=== PATIENT | female | born 1985 | race Caucasian/White ===

== ENCOUNTER 2016-10-14 08:54 | Outpatient (CLI) | payer OTHER ==
[2015-12-29 05:06] VITALS: BMI 29.5
[~2016-10-14 08:54] MED LIST: CLARITIN 10 MG10 MG PO; FOLIC ACID1 MG PO; HYDROCODON-ACE1 EAC7 PO; IBUPROFEN600 MG PO; IPRAT-ALBUT 0.5-3 ML UPD; NEXIUM40 MG PO; NORCO 10/325 TA1 TA1 PO; ORTHO TRI-7 DAYSX1 PO; PROTONIX40 MG PO
== END 2016-10-14 11:10 ==
LOC: D.MAMMO 08:54
DX: N63 Unspecified lump in breast (principal)

== ENCOUNTER 2017-09-17 03:06 | Emergency (ER) | payer BC ==
[~2017-09-17] VITALS: Ht 157.5 cm; Wt 50.0 kg
[2017-09-17 03:10] VITALS: Ht 157.5 cm; Wt 50.0 kg
[2017-09-17] MEDS ORDERED: BIRTH CONTROL (03:12)
[2017-09-17 03:39] LABS: APPEARANCE CLEAR (CLEAR); BILIRUBIN NEGATIVE (NEGATIVE); COLOR YELLOW (YELLOW); GLUCOSE NEGATIVE (NEGATIVE); KETONE NEGATIVE (NEGATIVE); NITRITE NEGATIVE (NEGATIVE); PROTEIN NEGATIVE (NEGATIVE); UROBILINOGEN NORMAL (NORMAL)
[2017-09-17 03:54] LABS: BASOPHILS 0.1 % (0-2); EOSINOPHILS 3.9 % (0-7); HEMATOCRIT 41.9 % (36.0-48.0); HEMOGLOBIN 14.5 g/dL (12-16); IMMATURE GRANULOCYTES 0.2 % (0-5); LYMPHOCYTES 22.2 % (15-50); MCH 30.8 pg (26.0-34.0); MCHC 34.6 g/dL (31.0-37.0); MEAN PLATELET VOLUME 9.9 fL (7.4-10.4); MONOCYTES 3.7 % (2-11); NEUTROPHILS 69.9 % (40-80); PLATELET COUNT 236 10x3/uL (130-400); RBC 4.71 10x6/uL (4.00-5.40); RDW 12.6 % (11.5-14.5); WBC 8.4 10x3/uL (4.8-10.8)
[2017-09-17 04:06] LABS: ALBUMIN 3.8 g/dL (3.4-5.0); ALKALINE PHOSPHATASE 68 U/L (46-116); ALT (SGPT) 15 U/L (10-68); BILIRUBIN - TOTAL 0.49 mg/dL (0.2-1.3); CALC OSMOLALITY 273 mosm/kg (275-300); CALCIUM 9.1 mg/dL (8.5-10.1); CARBON DIOXIDE 26.9 mmol/L (21.0-32.0); CHLORIDE - SERUM 105 mmol/L (98-107); CREATININE - SERUM 0.6 mg/dL (0.6-1.3); GLUCOSE 106 mg/dL (74-106); POTASSIUM - SERUM 3.5 mmol/L (3.5-5.1); PROTEIN - SERUM 7.5 g/dL (6.4-8.2); SODIUM 138 mmol/L (136-145); UREA NITROGEN 6 mg/dL (7-18); eGFR NON AFRICAN AMERICAN > 90 mL/min (90-120)
[2017-09-17 04:12] LABS: HCG - QUANTITATIVE (MATERNAL) 0 mIU/mL; LIPASE 152 U/L (73-393)
[2017-09-17] MEDS ORDERED: OMEPRAZOLE20 M1 PO (06:47)
[2017-09-17] MEDS ORDERED: ULTRAM50 MG PO (06:47)
[2017-09-17 07:07] VITALS: BP 90/52
== END 2017-09-17 07:08 | disposition home or self-care (01) ==
LOC: D.ER 03:06
PROVIDERS: Family Medicine
DX: R10.11 Right upper quadrant pain (principal); F17.200 Nicotine dependence, unspecified, uncomplicated

== ENCOUNTER → 2017-09-19 11:51 | Outpatient (CLI) | payer BC ==
[2017-09-17 03:10] VITALS: BMI 20.1
[~2017-09-19 11:51] MED LIST changes: +BIRTH CONTROL; +OMEPRAZOLE20 M1 PO; +ULTRAM50 MG PO
== END | disposition home or self-care (01) ==
LOC: D.NM 11:51
DX: R10.9 Unspecified abdominal pain (principal)

== ENCOUNTER → 2018-08-31 05:47 | Day surgery (SDC) | payer BC ==
[~2018-08-31] VITALS: Ht 160 cm; Wt 50.8 kg
--- NOTE | ~2018-08-31 | OP ---
PATIENT NAME: KATINA BARRIOS MEDICAL RECORD: [id number] :85 LOCATION:D[facility] ADMISSION DATE: SURGEON: SHIRAZ GÓMEZ MD DATE OF OPERATION: 08/31/2018 PREOPERATIVE DIAGNOSIS: Gallstones. POSTOPERATIVE DIAGNOSIS: Gallstones. PROCEDURE: Laparoscopic cholecystectomy. SURGEON: Shiraz Gómez MD REPORT OF PROCEDURE: The patient's abdomen was prepped and draped in sterile fashion. A cutdown was made on the inferior aspect of the umbilicus, 0 Vicryls were placed in the fascia bilaterally and the fascia was incised with 15-blade. I then bluntly entered the peritoneal cavity and placed a 12-mm Jany port. Under direct visualization, a 5-mm trocar was placed in the epigastrium and 2 more 5-mm trocars were placed in the right subcostal region. The gallbladder was grasped and elevated. There were no signs of inflammatory changes. The cystic artery and cystic duct were dissected free and these were clipped proximally and distally and ligated in standard fashion. The gallbladder was then taken off the liver bed using electrocautery. Any bleeding from the liver bed was treated with electrocautery. We irrigated out the right upper quadrant and assured there was no sign of any bleeding or bile leakage. At this point, the ports and insufflation were then removed and the gallbladder was taken out through the umbilicus. The umbilical fascia was closed with interrupted 0 Vicryls times 3. The wounds were then irrigated out with normal saline and infused with 10 mL of 0.25% Marcaine with epinephrine. The skin incisions were all closed with subcutaneous 5-0 Monocryl and dressed appropriately. COMPLICATIONS: None. CONDITION: Stable. ANESTHESIA: General endotracheal and local. BLOOD LOSS: Minimal. TRANSINT:[id number] Voice Confirmation ID: [id number] DOCUMENT ID: [id number] SHIRAZ GÓMEZ MD CC: ALFRED [id number] DICTATION DATE: 08/31/18 09 ELECTRICAL TESTER BATTERY: 08/31/18 1145 [facility] [address] [id number]
[~2018-08-31 05:47] MED LIST changes: +HYDROCODON-ACE1 EA10 PO
[2018-08-31 06:04] LABS: BASOPHILS 0.4 % (0-2); EOSINOPHILS 8.1 % (0-7); HEMATOCRIT 37.9 % (36.0-48.0); HEMOGLOBIN 13.1 g/dL (12-16); IMMATURE GRANULOCYTES 0.2 % (0-5); LYMPHOCYTES 32.6 % (15-50); MCHC 34.6 g/dL (31.0-37.0); MCV 86.7 fL (80.0-100.0); MEAN PLATELET VOLUME 9.2 fL (7.4-10.4); MONOCYTES 8.6 % (2-11); NEUTROPHILS 50.1 % (40-80); PLATELET COUNT 205 10x3/uL (130-400); RBC 4.37 10x6/uL (4.00-5.40); RDW 12.5 % (11.5-14.5); WBC 5.6 10x3/uL (4.8-10.8)
[2018-08-31 06:46] LABS: CALC OSMOLALITY 281 mosm/kg (275-300); CALCIUM 9.1 mg/dL (8.5-10.1); CARBON DIOXIDE 28.3 mmol/L (21.0-32.0); CHLORIDE - SERUM 106 mmol/L (98-107); CREATININE - SERUM 0.7 mg/dL (0.6-1.3); GLUCOSE 89 mg/dL (74-106); POTASSIUM - SERUM 3.6 mmol/L (3.5-5.1); SODIUM 143 mmol/L (136-145); UREA NITROGEN 7 mg/dL (7-18); eGFR NON AFRICAN AMERICAN > 90 mL/min (90-120)
[2018-08-31 07:32] VITALS: BP 107/46; Ht 160 cm; Wt 50.8 kg
[2018-08-31 07:53] LABS: HCG URINE NEGATIVE (NEGATIVE)
== END | disposition home or self-care (01) ==
LOC: D.OPS 05:47
PROVIDERS: ATTEND Surgery
DX: K80.10 Calculus of gallbladder with chronic cholecystitis without obstruction (principal); Z01.812 Encounter for preprocedural laboratory examination

== ENCOUNTER 2019-05-14 09:00 | Day surgery (SDC) | payer BC ==
[2019-05-11 12:05] LABS: HEMATOCRIT 42.5 % (36.0-48.0); HEMOGLOBIN 14.2 g/dL (12-16); MCHC 33.4 g/dL (31.0-37.0); MCV 89.7 fL (80.0-100.0); MEAN PLATELET VOLUME 9.9 fL (7.4-10.4); RBC 4.74 10x6/uL (4.00-5.40); RDW 12.4 % (11.5-14.5); WBC 6.5 10x3/uL (4.8-10.8)
[~2019-05-14] VITALS: Ht 160 cm; Wt 52.6 kg
--- NOTE | ~2019-05-14 | OP ---
PATIENT NAME: KATINA BARRIOS MEDICAL RECORD: [id number] :85 LOCATION:[facility] ADMISSION DATE: SURGEON: SEAMUS SCHMITT MD DATE OF OPERATION: 05/14/2019 PREOPERATIVE DIAGNOSIS: Meniscal tear medial left lower extremity. POSTOPERATIVE DIAGNOSIS: Meniscal tear medial left lower extremity. PROCEDURE: Meniscal repair. IMPLANTS: Arthrex meniscal fiber stitch. SURGEON: Seamus Schmitt MD ANESTHESIA: General. INTRAOPERATIVE COMPLICATIONS: None. SUMMARY OF PATHOLOGIC FINDINGS: Consistent with the patient's preoperative MRI, the patient had a meniscal capsule separation on the medial aspect. When pulled, it subluxed anteriorly. It had a very good bed for reapproximation. Therefore, the meniscus was repaired rather than removed in its entirety in this very young female. OPERATIVE SUMMARY IN DETAIL: After obtaining the appropriate preoperative orthopedic surgery consent as well as anesthetic consultation, evaluation and clearance, the patient was brought to the operating room and placed on the operating table in supine position. After adequate general laryngeal mask airway was administered, tourniquet was placed on the proximal aspect of the right lower extremity. Left lower extremity was then prepped and draped in routine sterile fashion. The leg was elevated and exsanguinated, tourniquet was inflated to 350 mmHg. At this point, the appropriate timeout was taken and agreed upon by all. Routine inferolateral portal was established followed by superomedial portal and inferomedial portal. Diagnostic arthroscopy did show the patient to have the above findings. At this point, the meniscal capsular area was gently debrided to recreate a good bleeding bed and then the fiber stitch meniscal repair method anchor was utilized in 2 places to reapproximate this meniscus back to its capsule. Having completed this, arthroscopy portals were closed in routine interrupted fashion using 4-0 Prolene. Sterile dressings were applied. Tourniquet was deflated. The patient was awakened and taken to the recovery room in stable condition. All final needle and sponge counts were correct. TRANSINT:[id number] Voice Confirmation ID: [id number] DOCUMENT ID: [id number] SEAMUS SCHMITT MD CC: [id number] DICTATION DATE: 05/18/19 0601 TSA SCREENER: 05/18/19 0841 [facility] 05/14/19 [place] [id number]
[~2019-05-14 09:00] MED LIST changes: +CELEXA10 MG PO
[2019-05-14 09:23] VITALS: BP 109/66; Ht 160 cm; Wt 52.6 kg
[2019-05-14 09:33] LABS: HCG URINE NEGATIVE (NEGATIVE)
[2019-05-14] MEDS ORDERED: HYDROCODON-ACE1 EA10 PO (12:59)
--- NOTE | 2019-05-14 13:48 | NUR ---
PT STATES PAIN IS "5", DECLINES PAIN TREATMENT
--- NOTE | 2019-05-14 14:54 | NUR ---
PT LEFT UNIT VIA WC AT 1450
--- NOTE | 2019-05-14 15:22 | NUR ---
1430 MEDICATED FOR PAIN 07/14 1435 VOIDED 1450 D/C HOME
== END 2019-05-14 14:50 | disposition home or self-care (01) ==
LOC: D.PAN 09:00 → D.OPS 16:15 → D.PAN 16:15
PROVIDERS: Anesthesiology; ATTEND Orthopaedic Surgery
DX: S83.242A Other tear of medial meniscus, current injury, left knee, initial encounter (principal); X58.XXXA Exposure to other specified factors, initial encounter

== ENCOUNTER 2020-07-28 18:28 | Emergency (ER) | payer BC ==
[~2020-07-28] VITALS: Ht 160 cm; Wt 50.0 kg
[2020-07-28 18:38] VITALS: Ht 160 cm; Wt 50.0 kg
[2020-07-28 19:18] LABS: BASOPHILS 0.7 % (0-2); EOSINOPHILS 4.5 % (0-7); HEMATOCRIT 40.5 % (36.0-48.0); HEMOGLOBIN 13.8 g/dL (12-16); LYMPHOCYTES 34.8 % (15-50); MCH 29.9 pg (26.0-34.0); MCHC 34.1 g/dL (31.0-37.0); MCV 87.6 fL (80.0-100.0); MEAN PLATELET VOLUME 7.5 fL (7.4-10.4); MONOCYTES 6.7 % (2-11); NEUTROPHILS 53.3 % (40-80); PLATELET COUNT 250 10x3/uL (130-400); RBC 4.62 10x6/uL (4.00-5.40); RDW 12.6 % (11.5-14.5); WBC 5.1 10x3/uL (4.8-10.8)
[2020-07-28 19:28] LABS: BILIRUBIN NEGATIVE (NEGATIVE); KETONE NEGATIVE (NEGATIVE); NITRITE NEGATIVE (NEGATIVE); UROBILINOGEN NORMAL mg/dL (< 2)
[2020-07-28 19:29] LABS: HCG URINE NEGATIVE (NEGATIVE)
[2020-07-28 19:36] LABS: CALC OSMOLALITY 271 mosm/kg (275-300); CALCIUM 8.8 mg/dL (8.5-10.1); CARBON DIOXIDE 28.4 mmol/L (21.0-32.0); CHLORIDE - SERUM 103 mmol/L (98-107); CREATININE - SERUM 0.8 mg/dL (0.6-1.3); GLUCOSE 91 mg/dL (74-106); POTASSIUM - SERUM 3.3 mmol/L (3.5-5.1); SODIUM 137 mmol/L (136-145); UREA NITROGEN 8 mg/dL (7-18); eGFR NON AFRICAN AMERICAN 86 mL/min (90-120)
[2020-07-28 19:40] LABS: UDS - AMPHET NEGATIVE QUAL (NEGATIVE); UDS - BARB NEGATIVE QUAL (NEGATIVE); UDS - BENZO NEGATIVE QUAL (NEGATIVE); UDS - COCAINE NEGATIVE QUAL (NEGATIVE); UDS - OPIATE NEGATIVE QUAL (NEGATIVE); UDS - PCP NEGATIVE QUAL (NEGATIVE); UDS - THC NEGATIVE QUAL (NEGATIVE)
[2020-07-28 19:50] LABS: ALBUMIN 3.9 g/dL (3.4-5.0); ALKALINE PHOSPHATASE 73 U/L (30-120); ALT (SGPT) 16 U/L (10-68); BILIRUBIN - TOTAL 0.51 mg/dL (0.2-1.3); LIPASE 78 U/L (73-393); PROTEIN - SERUM 7.3 g/dL (6.4-8.2); THYROID STIMULATING HORMONE 6.18 uIU/mL (0.36-3.74)
[2020-07-28 20:45] VITALS: BP 106/66
== END 2020-07-28 20:45 | disposition home or self-care (01) ==
LOC: D.ER 18:28
PROVIDERS: Family Medicine
DX: R55 Syncope and collapse (principal); R51.9 Headache, unspecified; K21.9 Gastro-esophageal reflux disease without esophagitis